=== PATIENT | female | born 1945 | race Caucasian/White ===

== ENCOUNTER 2021-03-25 11:48 | Outpatient (CLI) | payer MEDICARE, SELFPAY ==
--- NOTE | 2021-03-25 10:45 | DI.RAD_ITS ---
Exam(s) XR HIP LT COMPLETE AP PELVIS EXAM: XR HIP LT COMPLETE AP PELVIS CLINICAL HISTORY: LEFT HIP PAIN. TECHNIQUE: 2D digital imaging was performed. COMPARISON: No exams were available for comparison FINDINGS: No evidence of pelvic or hip fracture. There are moderate-advanced degenerative changes in the left hip joint asymmetric left hip joint narrowing. On the lateral view we also note marginal osteophyte at the left femoral head level. There is calcific density in the right-side of pelvis which is eithe r related to ovary or possibly within a uterine fibroid. IMPRESSION: Degenerative changes left hip. DATA REPOSITORY: RADIATION DOSE DELIVERED:
== END 2021-03-25 11:49 | disposition home or self-care (01) ==
LOC: DIORS 11:49
PROVIDERS: PCP Physician Assistant Medical; Referring Provider Physician Assistant Medical; Visit Provider Student in an Organized Health Care Education/Training Program
DX: M16.12 Unilateral primary osteoarthritis, left hip (principal)
CPT/HCPCS: 99203; 73502

== ENCOUNTER → 2021-08-09 13:27 | Outpatient (BNVA) | payer MEDICARE, SELFPAY | PROVIDERS: PCP Physician Assistant Medical; Referring Provider Physician Assistant Medical; Visit Provider Student in an Organized Health Care Education/Training Program | DX: M16.12 Unilateral primary osteoarthritis, left hip (principal) | CPT/HCPCS: 99215 ==

== ENCOUNTER → 2021-08-24 01:13 | Outpatient (CLI) | payer MEDICARE, SELFPAY ==
--- NOTE | 2021-08-24 09:00 | DI.MRI_ITS ---
Exam(s) MR LOWER JOINT LT WO EXAM: MR LOWER JOINT LT WO CLINICAL HISTORY: oa lt hip, lt hip pain,m16.12 TECHNIQUE: Multiplanar multisequence MRI of the knee was performed. COMPARISON: CR XR HIP LT COMPLETE AP PELVIS from 03/25/2021 FINDINGS: MARROW: There is no evidence of stress fracture nor avascular necrosis. There is mild-moderate bone edema in the left femoral head and neck. ARTICULATION: There is a unilateral left hip joint effusion-moderate size. No obvious loose intra-ar ticular body. There are significant asymmetric degenerative changes in the left hip joint with signi ficant cartilage loss-narrowing of the hip joint [id number] and there are degenerative subarticular cysts in the femoral head, the largest measuring 7 x 6 millimeters. Smaller degenerative cysts are noted in the opposing acetabulum also with some mild acetabular bone edema. There are marginal osteo phytes on both sides of the femoral head. There is no obvious hypertrophy of the ligamentum teres. LABRUM: There is attenuation and tear signal within the anterosuperior labrum. There is no evidence of paralabral cyst. BURSAE: There is no evidence of iliopsoas bursitis. Mild fluid seen lateral to the greater trochante r, this actually seen on both hips. Consistent with mild trochanteric bursitis.. Mild increased sig nal seen within the gluteus medius tendon. No abnormal intraosseous signal in the greater trochanter . OTHER: No evidence of hamstring tearing. No evidence of myositis signal. No evidence of asymmetric muscle atrophy. Sigmoid diverticulosis incidentally noted. No obvious acute diverticulitis. There are normal findin gs in the right adnexa. There is a large cystic mass which is probably ovarian, measuring 4.7 by 5 c m in addition, there is a finding in the right side of the uterus with some multifocal signal dropout which is probably a partially calcified uterine fibroid measuring 3 x 4 cm. There is no free fluid in the pelvis. IMPRESSION: 1. Advanced osteoarthritic degenerative changes in the left hip as described above and there is also some labral tearing evident, most prominent anterosuperiorly. 2. Incidentally noted are 2 masses in the central-right pelvis including with what is probably a 3 x 4 cm partially calcified uterine fibroid as well as a slightly larger 5 cm cystic structure which is probably ovarian. Follow-up ultrasound is recommended. There is no free fluid in the pelvis. DATA REPOSITORY:
== END ==
PROVIDERS: PCP Physician Assistant Medical; Visit Provider Student in an Organized Health Care Education/Training Program
DX: M25.552 Pain in left hip (principal); M16.12 Unilateral primary osteoarthritis, left hip; D25.9 Leiomyoma of uterus, unspecified; N83.8 Other noninflammatory disorders of ovary, fallopian tube and broad ligament; S76.012A Strain of muscle, fascia and tendon of left hip, initial encounter
CPT/HCPCS: 73721

== ENCOUNTER → 2021-12-14 02:22 | Outpatient (CLI) | payer MEDICARE, SELFPAY ==
--- NOTE | 2021-12-14 | DI.US_ITS ---
Exam(s) US PELVIS EXAM: US PELVIS CLINICAL HISTORY: PELVIC MASS R19.00 CALCIFIED FIBROID ON HIP XRAY TECHNIQUE: Ultrasound performed using standard protocol. COMPARISON: US US SOFT TISSUE EXTREMITY from 12/14/2021 FINDINGS: This examination was performed transabdominally only at the patient's request. Uterus measures 8.1 x 3.1 x 5.5 cm. Endometrial stripe not well visualized and cannot be evaluated. There is 4.7 cm in diameter fundal mass consistent in appearance with a fibroid in this contains intr alesional calcifications. An additional presumed 21 millimeter fibroid is also seen. There is a right ovarian massmeasuring 4.7 cm in diameter which is not ideally visualized on transabd ominal scanning but which appears to be cystic. Right ovary measures 51 x 53 by 50 millimeters. Lef t ovary measures 29 x 18 x 29 millimeters. Left ovary is not well visualized but appears to contain multiple small lesions, possibly cysts. No free fluid in the cul-de-sac. Kidneys are grossly unremarkable on limited scanning. IMPRESSION: Limited study transabdominally only. Bilateral ovarian masses are identified, I cannot confirm that these are cysts on transabdominal examination. Additional evaluation with pelvic MRI recommended. DATA REPOSITORY:
--- NOTE | 2021-12-14 | DI.US_ITS ---
Exam(s) US SOFT TISSUE EXTREMITY EXAM: US SOFT TISSUE EXTREMITY CLINICAL HISTORY: PAIN LEFT THIGH M79.652, R/O TEAR OF QUADS OR MASS TECHNIQUE: Ultrasound performed using standard protocol. COMPARISON: MR MR LOWER JOINT LT WO from 08/24/2021 FINDINGS: Soft tissue ultrasound was performed to evaluate proximal left thigh pain. There is fluid collection which is likely associated with the left hip joint, as noted on prior MRI of August 24. This measures about 34 x 8 x 15 millimeters. No other mass or fluid collection identified. If there is a high clinical suspicion of a quadriceps tear or mass, as stated on the requisition, add itional evaluation with MRI would be recommended. IMPRESSION: DATA REPOSITORY:
== END ==
PROVIDERS: PCP Physician Assistant Medical; Visit Provider Physician Assistant Medical
DX: R93.5 Abnormal findings on diagnostic imaging of other abdominal regions, including retroperitoneum (principal)
CPT/HCPCS: 76881; 76830; 76856

== ENCOUNTER 2022-11-23 10:31 | Outpatient (CLI) | payer MEDICARE, SELFPAY ==
--- NOTE | 2022-11-23 10:28 | DI.RAD_ITS ---
Exam(s) XR HIP LT COMPLETE AP PELVIS EXAM: XR HIP LT COMPLETE AP PELVIS CLINICAL HISTORY: left hip pain. TECHNIQUE: 2D digital imaging was performed. COMPARISON: Prior x-rays 03/25/2021 FINDINGS: No evidence of pelvic nor hip fracture. Advanced degenerative changes in the left hip joint are again noted with further advancement. There is now [id number] narrowing of the left hip joint space and increase E number of degenerative subar ticular cysts on both sides the joint. Small marginal osteophytes noted. The opposite-right hip remains unremarkable. IMPRESSION: Further progression of severe osteoarthritis in left hip. DATA REPOSITORY: RADIATION DOSE DELIVERED:
== END 2022-11-23 10:32 | disposition home or self-care (01) ==
LOC: DIORS 10:31
PROVIDERS: PCP Physician Assistant Medical; Referring Provider Physician Assistant Medical; Visit Provider Student in an Organized Health Care Education/Training Program
DX: M16.12 Unilateral primary osteoarthritis, left hip
CPT/HCPCS: 99213; 73502

== ENCOUNTER → 2022-12-09 09:14 | Outpatient (BNVA) | payer MEDICARE, SELFPAY | PROVIDERS: PCP Physician Assistant Medical; Referring Provider Physician Assistant Medical; Visit Provider Student in an Organized Health Care Education/Training Program | DX: M16.12 Unilateral primary osteoarthritis, left hip (principal) | CPT/HCPCS: 99213 ==

== ENCOUNTER 2023-01-20 03:08 | Outpatient (CLI) | payer MEDICARE, SELFPAY ==
[2023-01-20 12:02] LABS: HCT 38.5 % (36.0-46.0); HGB 13.1 g/dL (11.2-15.7); MCH 30.8 pg (27.0-33.0); MCV 91 fL (80-95); MPV 8.6 fL (8.0-11.0); Platelet Count 290 10^3/uL (130-400); RBC 4.25 10^6/uL (3.93-5.22); RDW 12.5 % (11.7-14.6); RDW-SD 41.3 fL; WBC 6.92 10^3/uL (4.4-10.8)
[2023-01-20 12:22] LABS: Anion Gap 9.3 mmol/L (3-11); BUN 18 mg/dL (7-18); CO2 25.7 mmol/L (21.0-32.0); Calcium 9.2 mg/dL (8.5-10.1); Chloride 104 mmol/L (98-107); Estimated GFR 57.66 (mL/min/1.73m2); Glucose 94 mg/dL (74-106); Potassium 3.6 mmol/L (3.5-5.1); Sodium 139 mmol/L (136-145)
== END 2023-01-20 03:09 | disposition home or self-care (01) ==
LOC: LBO 03:08
PROVIDERS: PCP Physician Assistant Medical; Visit Provider Student in an Organized Health Care Education/Training Program
DX: M16.12 Unilateral primary osteoarthritis, left hip (principal); M25.552 Pain in left hip; Z01.818 Encounter for other preprocedural examination; Z01.812 Encounter for preprocedural laboratory examination
CPT/HCPCS: 36415; 80048; 85027

== ENCOUNTER 2023-01-31 05:59 | Day surgery (SDC) | payer MEDICARE, SELFPAY ==
[2023-01-31] VITALS (9 sets, daily range): BP systolic 79–133; BP diastolic 48–89; PULSE 53–67; RESP 10–16; TEMP 35.8–36.7; O2SAT 97–100; BMI 26.4
--- NOTE | 2023-01-31 06:45 | DI.RAD_ITS ---
Exam(s) XR HIP LT IN OR EXAM: XR HIP LT IN OR CLINICAL HISTORY: surgery TECHNIQUE: 2D and realtime digital imaging was performed. CONTRAST MATERIAL: Refer to procedure report. COMPARISON: CR XR HIP LT COMPLETE AP PELVIS from 11/23/2022 FINDINGS: Fluoroscopy was provided for Dr. Stephenson during the performance of a left total hip replacement. P lease refer to the procedure report for complete details. Ka,r=1.61 mGy IMPRESSION: RADIATION DOSE DELIVERED:
[2023-01-31] MEDS: Acetaminophen 500 MG TAB 1000 MG PO (06:50)
[2023-01-31] MEDS: Celecoxib 200 MG CAP 400 MG PO (06:50)
--- NOTE | 2023-01-31 07:07 | W.ANESPRE ---
General Info Date of Service Date Performed: 01/31/23 Height: 5 ft 1 in Weight: 63.4 kg Body Mass Index (BMI): 26.4 Surgical Procedure: Operation Date: 01/31/23 07:50 Proposed Procedure Side Surgeon p Hip Total Hip Anterior, Corail Short Neck Left Roshan Stephenson MD Meds Allergies and Home Medications Allergies Allergy/AdvReac Type Severity Reaction Status Date / Time No Known Allergies Allergy Verified 01/31/23 06:18 Home Medication Medication Instructions Recorded ascorbate calcium (vitamin C) 500 500 mg PO DAILY 03/16/21 mg tablet cholecalciferol (vitamin D3) 50 50 mcg PO DAILY 03/16/21 mcg (2,000 unit) capsule cyanocobalamin (vitamin B-12) 100 100 mcg PO DAILY 03/16/21 mcg tablet omega-3 fatty acids 1,000 mg 1,000 mg PO DAILY 03/16/21 capsule (Fish Oil Concentrate) vit C,E,zinc,copper-[id number] 250 1 cap PO DAILY 03/25/21 mg-lutein 5 mg-zeaxanthin 1 mg capsule (Ocuvite Adult 50 Plus) vitamin E (dl, acetate) 180 mg 180 mg PO DAILY 03/25/21 (400 unit) capsule methimazole 5 mg tablet 2.5 mg PO DAILY PRN 11/23/22 biotin-folic acid-vitamin B 1 tab PO DAILY 01/20/23 complex with C-zinc 3 mg-0.8 mg tablet magnesium oxide 500 mg tablet 500 mg PO DAILY 01/20/23 acetaminophen 500 mg tablet 1,000 mg PO Q8H PRN pain #90 tabs 01/31/23 aspirin 81 mg tablet,delayed 81 mg PO BID 30 days #60 tabs 01/31/23 release celecoxib 200 mg capsule (Celebrex) 200 mg PO BID PRN #60 caps 01/31/23 dexamethasone 4 mg tablet 4 mg PO DAILY #2 tabs 01/31/23 docusate sodium 100 mg capsule 100 mg PO BID #30 caps 01/31/23 (Colace) pantoprazole 40 mg tablet,delayed 40 mg PO DAILY #14 tabs 01/31/23 release tramadol 50 mg tablet 50 mg PO Q4H PRN severe 01/31/23 postoperative pain #18 tabs Current Visit Medications: Current Medications Generic Name Dose Route Start Last Admin Trade Name Freq PRN Reason Stop Dose Admin Acetaminophen 1,000 mg 01/31/23 06:00 01/31/23 06:50 Acetaminophen 500 Mg Tab PO 03/02/23 05:59 1,000 mg PREOP BRANDON Administration Celecoxib 400 mg 01/31/23 06:00 01/31/23 06:50 Celecoxib 200 Mg Cap PO 03/02/23 05:59 400 mg PREOP BRANDON Administration Tranexamic Acid 1,000 mg/ 60 mls @ 360 mls/hr 01/31/23 06:00 Sodium Chloride IV 01/31/23 18:00 PREOP BRANDON Ringer's Solution 1,000 mls @ 80 mls/hr 01/31/23 06:00 IV 03/01/23 23:59 INFUSION BRANDON Cefazolin Sodium/Dextrose 2 gm in 50 mls @ 100 mls/hr 01/31/23 06:00 Ancef Duplex IVPB 03/01/23 23:59 PREOP BRANDON IV Miscellaneous Supplies 1 each 01/31/23 06:00 Iv Access IV 03/01/23 23:59 DIRECTED BRANDON Sodium Chloride 0 ml 01/31/23 06:00 Normal Saline Flush 10 Ml Syr IV 03/01/23 23:59 PRN PRN Sodium Chloride 0 ml 01/31/23 06:00 Normal Saline 10 Ml Vial IJ 03/01/23 23:59 DIRECTED PRN Sterile Water 0 ml 01/31/23 06:00 Water,Injection,Sterile 10 Ml Vial IJ 03/01/23 23:59 DIRECTED PRN PFSH Active Problems Active Problems: Problem Status Onset Code Osteoarthritis of left hip M16.12 Anxiety F41.9 Psoriasis L40.9 Hypercholesterolemia E78.00 Graves disease E05.00 Essential tremor G25.0 Medical History Medical History Hyperthyroidism Surgical History Surgical History (Updated 01/31/23 @ 06:22 by Thao Freeman) Hx of colonoscopy Status post breast reduction (~2004) Tobacco Smoking/Tobacco Use Status: Never Alcohol Alcohol Intake: current Alcohol intake frequency: holidays/special occasions only Alcohol type: wine Substance Use Substance use: Never Substance use type: does not use Details: alcohol: couple months Vital Signs and Lab Results Vital Signs Most Recent Vital Signs in EMR: Most Recent Vital Signs Temp Pulse Resp BP Pulse Ox 36.7 C 67 14 133/70 97 01/31/23 06:24 01/31/23 06:24 01/31/23 06:24 01/31/23 06:24 01/31/23 06:24 Lab Results Blood Type / Crossmatch: No Data to Display Complete Blood Count: White Blood Count 6.92 10^3/uL (4.4-10.8) 01/20/23 11:59 Red Blood Count 4.25 10^6/uL (3.93-5.22) 01/20/23 11:59 Hemoglobin 13.1 g/dL (11.2-15.7) 01/20/23 11:59 Hematocrit 38.5 % (36.0-46.0) 01/20/23 11:59 Platelet Count 290 10^3/uL (130-400) 01/20/23 11:59 Complete Metabolic Panel: Sodium 139 mmol/L (136-145) 01/20/23 11:59 Potassium 3.6 mmol/L (3.5-5.1) 01/20/23 11:59 Chloride 104 mmol/L (98-107) 01/20/23 11:59 Carbon Dioxide 25.7 mmol/L (21.0-32.0) 01/20/23 11:59 BUN 18 mg/dL (7-18) 01/20/23 11:59 Creatinine 1.0 mg/dL (0.55-1.02) 01/20/23 11:59 Est GFR (CKD-EPI 2020) 57.66 (mL/min/1.73m2) 01/20/23 11:59 Calcium 9.2 mg/dL (8.5-10.1) 01/20/23 11:59 Glucose 94 mg/dL (74-106) 01/20/23 11:59 Liver Function Panel: No Data to Display Coagulation Panel: No Data to Display Cardiac Panel: No Data to Display Arterial Blood Gas: No Data to Display Venous Blood Gas: No Data to Display Pancreas Panel: No Data to Display Thyroid Panel: No Data to Display Infectious Disease: No Data to Display Blood Cultures: No Data to Display Toxicology Panel: No Data to Display Anesthesia Assessment and Plan Anesthesia History Personal History: No History of Anesthesia Complications Family History: No Family History of Anesthesia Complications Exercise Tolerance Exercise Tolerance: Metabolic Equivalents>4 Pertinent Negatives Pertinent Negatives: No Major Cardiovascular Symptoms or Complaints, No Major Pulmonary Symptoms or Complaints and No History of CVA/TIA Cardiac & Pulmonary Exam Cardiac Exam: Normal S1/S2 Heart Sounds Pulmonary Exam: Clear Bilateral Breath Sounds Implantable Cardiac Device Does patient have a Pacemaker or an ICD?: No Airway Exam Known Difficult Airway: No Mallampati Class: 2 Mouth Opening: Normal (> 3cm) Thyromental Distance: Greater than 3 cm Neck Range of Motion: Full ROM Neck Circumference: Normal Teeth Condition: Normal Dentition ASA Classification ASA Score: ASA 2 Emergency Case?: No NPO Status NPO Status: NPO Clears >2 hours, Solids >8 hours Anesthesia Plan Resuscitation Status: Full Code Anesthesia Technique: Spinal Anesthesia Airway Planned: Natural Airway Monitors Used: Standard Monitors
[2023-01-31] MEDS: Lactated Ringers 1,000 ML 80 ML IV (07:10)
--- NOTE | 2023-01-31 07:13 | DSE_ITS ---
Date of service: 01/31/23 Time of Service: 07:18 DS: Diagnosis Discharge Diagnosis (1) Osteoarthritis of left hip: Status: Chronic Discharge Plan Disposition Patient Disposition: Home Condition: Good Discharge Details Reason For Visit: Left hip DJD Attending Provider: Roshan Stephenson Primary Care Provider: Hermelinda Cox Home Meds and New Rx's Prescriptions: New acetaminophen 500 mg tablet 1,000 mg PO Q8H PRN Qty: 90 0RF Rx Instructions: Take two tablets up to every 8 hours as needed for pain aspirin 81 mg tablet,delayed release (DR/EC) 81 mg PO BID 30 Days Qty: 60 0RF celecoxib [Celebrex] 200 mg capsule 200 mg PO BID PRNQty: 60 0RF Rx Instructions: Take one tablet twice daily for pain and inflammation docusate sodium [Colace] 100 mg capsule 100 mg PO BID Qty: 30 0RF tramadol 50 mg tablet 50 mg PO Q4H PRN (Reason: severe postoperative pain) Qty: 18 0RF Rx Instructions: Take one tablet up to every 4 hours as needed for severe pain pantoprazole 40 mg tablet,delayed release (DR/EC) 40 mg PO DAILY Qty: 14 0RF dexamethasone 4 mg tablet 4 mg PO DAILY Qty: 2 0RF Rx Instructions: Take one tablet once daily for two days Continued ascorbate calcium (vitamin C) 500 mg tablet 500 mg PO DAILY cholecalciferol (vitamin D3) 50 mcg (2,000 unit) capsule 50 mcg PO DAILY omega-3 fatty acids [Fish Oil Concentrate] 1,000 mg capsule 1,000 mg PO DAILY cyanocobalamin (vitamin B-12) 100 mcg tablet 100 mcg PO DAILY vitamin E (dl, acetate) 180 mg (400 unit) capsule 180 mg PO DAILY Ocuvite Adult 50 Plus 250-5-1 mg capsule 1 cap PO DAILY methimazole 5 mg tablet 2.5 mg PO DAILY PRN biotin-folic acid-B compC-zinc 3-0.8 mg tablet 1 tab PO DAILY magnesium oxide 500 mg tablet 500 mg PO DAILY Discontinued ibuprofen [Advil] 200 mg Tablet 400 mg PO Q6H PRN Discharge Instructions Additional Instructions: Total Hip Discharge Instructions Activity: The most important activity is to walk. You should try to take short walks a few times a day. You have no restrictions on movement or positioning, but do not try to force what you do. You will find some stiffness and weakness with hip flexion (lifting your knee). Do not try to strengthen this too early, continue to practice walking and stairs and this will come. - Outpatient physical therapy can be helpful to help return you to a normal gait and improve your flexibility and strength. This can start around 2 weeks. For some patients, it?s not necessary. Usually this is determined at the time of discharge or at the first post-operative visit. - You should wear the GEOFF hose on both legs for 2 weeks. Dressing: Keep the surgical dressing in place for at least one week. After the first week it may be removed and replace with light gauze and tape or nothing. It may get wet after 3 days but avoid soaking the dressing. If it gets wet, just lightly pat dry. It is important to always keep some gauze between skin folds, especially when you are sitting. Spend some time with the wound exposed when you are lying flat as the incision does wrinkle onto itself. Medications: - You should take Tylenol and an anti-inflammatory Celebrex as your primary pain control medications. If the Celebrex is too expensive or not covered, please call the office for another alternative (Advil/Ibuprofen or Naproxen/Aleve). - You have been prescribed a stronger pain medication Tramadol for breakthrough pain, take as needed as prescribed. - You have also been prescribed a stomach acid reduction agent Pantoprozole to help reduce stomach acid and reflux. - You have also been prescribed Decadron to help with post-operative nausea and pain. You will take this for two days starting tomorrow. - You will be taking Aspirin 81mg twice a day for DVT prevention unless instructed otherwise. - If you have constipation you should take Colace (which has been prescribed) or Miralax (which is available [id number]). It takes most people 3-4 days to have a bowel movement. Follow-up: 2 weeks If you have any acute concerns or questions, please do not hesitate to contact the office at [phone]. You may contact Dr. Stephenson with any questions after hours through the hospital at [phone] or on his cell phone at [phone]. Referrals: Roshan Stephenson MD [ [facility] STAFF PHYSICIAN] - Equipment/Supplies: Walker Activity:: Elevate Remove Dressings/Wound Care:: Do Not Remove Shower/Bathe:: Cover Diet:: As Tolerated DS: Summary Time Spent with Patient providing and/or coordinating discharge services: Less than 30 minutes Status at Discharge Functional status at discharge: uses cane/walker Overall status at discharge: patient is progressing back to baseline Mental Status: mental status grossly normal Speech and Movement: speech and movement normal Mood: congruent mood Affect: normal affect Exam Psych Mental Status: mental status grossly normal Speech and Movement: speech and movement normal Mood: congruent mood Affect: normal affect DS: Data Vitals/I&O Vitals and I&O: Vital Signs Temperature 98.1 F 01/31/23 06:24 Pulse 67 01/31/23 06:24 Pulse Rhythm Regular 01/31/23 06:24 Respiratory Rate 14 01/31/23 06:24 Respiratory Depth Normal 01/31/23 06:24 Blood Pressure 133/70 01/31/23 06:24 Pulse Oximetry 97 01/31/23 06:24 Oxygen Delivery Method Room Air 01/31/23 06:24 Oxygen Flow Rate 0 01/31/23 06:24 Pain Level 5 01/31/23 06:24 Intake & Output 01/30/23 01/30/23 01/31/23 11:59 23:59 11:59 Weight 139 lb 12.369 oz PFSH All Active Problems Osteoarthritis of left hip (Chronic) Anxiety (Chronic) Psoriasis (Chronic) Hypercholesterolemia (Acute) Graves disease (Acute) Essential tremor (Acute) Due to Graves Medical History Hyperthyroidism Surgical History (Updated 01/31/23 @ 06:22 by Thao Freeman) Hx of colonoscopy Status post breast reduction (~2004) Social History Smoking/Tobacco Use Status: Never Smoking risk assessment performed?: Yes Alcohol Intake: current Alcohol Intake frequency: holidays/special occasions only Alcohol type: wine Drug use: Never Substance use type: does not use Details: alcohol: couple months Housing: house Current gender identity: female Do you feel safe at home: Yes Additional Social history: lives alone Time Spent with Patient Time Spent with Patient: <45 minutes Time was spent: referring, communicating with other health child daycare worker, counseling the patient and care coordination
[2023-01-31] MEDS: ceFAZolin 2 GM/50 ML BAG IVPB (07:30)
--- NOTE | 2023-01-31 08:51 | W.PM.OP ---
Date of service: 01/31/23 Time of Service: 07:45 Operative Note Operative Note DATE OF PROCEDURE: 01/31/23 PRE-OP DIAGNOSIS: Left Hip Osteoarthritis POST-OP DIAGNOSIS: same PROCEDURE: Left Anterior Total Hip Arthroplasty with Intraoperative Navigation SURGEON: Roshan Stephenson CUSTOMER SUCCESS ADVOCATE: Neelam Martin ANESTHESIA TYPE: Spinal Refer to Anesthesia Record ESTIMATED BLOOD LOSS: 100 PATHOLOGY: none sent TOURNIQUET TIME: 0 COMPLICATIONS: None Patient was transported to: PACU Patient's condition: stable Implants: 1. Depuy [place] Acetabular Component, 48mm 2. Depuy Acetabular Liner, [id number] 3. Depuy Corail Low Neck Collared Femoral Stem, Size 11 4. Depuy Altrx Ceramic Femoral Head, Size 32+5mm Indications: I have seen Zuri in clinic for symptoms of hip arthritis, confirmed with radiographic findings. She has exhausted nonoperative methods and was having significant limitations in daily function and desired better function and less pain. I discussed the technical details of a hip replacement. I explained the risks of the procedure to include, but not limited to, bleeding, infection, pain, stiffness, fracture, damage to nerves and vessels, damage to muscles and tendons, loosening, instability, leg length inequality, need for repeat procedure, blood clot and cardiopulmonary demise. Despite these risks, Zuri elected to proceed. Findings: There was significant signs of arthritis throughout the hip. Procedure Description: Zuri was greeted in the preoperative holding area where the correct side was identified and marked. The consent was reviewed with the patient and signed. The history and physical was updated. All questions were answered. She was taken back to the operating room. A spinal anesthestic was then administered. The feet were wrapped with cast padding and Coban and then placed into the boot liners and then into the boots. Care was taken to protect the skin and make sure the heels were fully down and the boots were stable. The patient was then positioned onto the HANA table. Both legs were held in a neutral position. SCDs were applied. The patient was then slid down onto a peroneal post. Prophylactic antibiotics in the form of Cefazolin were administered. 1g of Tranxemic Acid was given intravenously within 30 minutes of incision. The left leg was then prepped with Chloraprep and draped in a standard fashion. A second prep with Chloraprep was performed prior to placement of a shower-curtain type drape with Iodine impregnated skin protection. A timeout to confirm correct identity, side and site, procedure, allergies, anesthesia, and medical concerns was performed. An obliquely oriented incision was made starting lateral to the ASIS and running distal over the Tensor Fascia Isa (TFL) muscle belly toward the fibular head, approximately 10cm. The skin and soft tissue was dissected sharply, through Sara?s fascia, and to the fascia of the TFL. With the fascia and superior border of the IT band identified, the fascia was incised with a new knife just above any perforators from the IT band. The TFL muscle belly was bluntly dissected away from the fascia and moved laterally. The fat between TFL and rectus was identified to ensure the dissection was not within the TFL. Blunt dissection created space between abductors and the capsule and retractor was placed over the lateral femoral neck. The fibers of the rectus femoris tendon were identified and these were freed from the anterior capsule. A second cobra retractor was placed around the medial femoral neck. The TFL was further retracted laterally to show the deep fascia. Careful dissection through this layer identified three main crossing vessels of the lateral femoral circumflex. These were cauterized in multiple locations and then cut without any noticeable bleeding. The TFL was further released bluntly from the deep fascia to expose anterior hip capsule and fat The Dick orthopaedic retractor was then placed beneath the TFL and against sartorius and medial soft tissues to protect and retract the soft tissues. A T-capsulotomy was then performed starting at the superior lateral acetabulum and moving distally to the intertrochanteric ridge. These capsular flaps were tagged with a No. 1 Ethibond and elevated from within. The capsular flaps were released to the shoulder of the lateral neck and to the lesser trochanter to give excellent visualization of the proximal femur. A neck osteotomy was performed using an oscillating saw based on preoperative templates. This cut started in the shoulder and of the lateral neck and exited medially. The saw was at all times directed medially to avoid injury to the greater trochanter. Gross traction was applied to the leg and the osteotomy opened. The femoral head was removed with a corkscrew, making sure to protect the TFL on its exit. Traction was released after head removal. This was measured on the back table to determine the starting reamer size. Portions of the rectus obscuring visualization were minimally elevated off the superior acetabulum. An anterior retractor was placed over the anterior wall between capsule and labrum and attached to the Gripper retraction system. The femur was rotated to 90 degrees and medial capsule was fully released until the lesser trochanter was palpable and visible; the femur was returned to 30 degrees. A posterior retractor was placed similarly between capsule and labrum. This provided excellent visualization. The contents of the cotyloid fossa were removed with electrocautery and the labrum was removed with a knife. There was a notable floor osteophyte. There was significant chondromalacia of the superior acetabulum. Acetabular reaming began with a 44mm reamer. This first reaming was directed anterior to posterior and medial to get down to the true floor. This was inspected and reamed until the true floor was reached. The anterior retractor was then released and entry and exit was provided by traction on the capsular flaps. I then reamed sequentially up to a 48mm reamer where good fit was obtained. The larger reamers were oriented based on anatomical reference of the anterior and lateral cazares to ensure proper abduction and anteversion. Positioning and size was confirmed with the fluoroscopy. A 48mm Depuy [place] acetabular component was selected. The acetabulum was reamed around the periphery with the selected acetabular size to prevent a rim fit. The deep tissues were irrigated. The acetabular component was then impacted in a position of about 40-45 degrees of abduction and 15-20 degrees of anteversion, using the patient?s anatomy as the ultimate landmark. Fluoroscopy was used to confirm this. There was excellent installation and service technician of the acetabular component and the inserting handle was removed. The acetabular liner, Depuy 65y67hm polyethylene liner, was inserted and lined up with the tines of the acetabular component. There was no soft tissue interposition. The liner was then impacted into position and confirmed to be well-seated. A portion of the hiro-articular cocktail was then injected around the acetabulum into the capsule and periosteum. This cocktail consisted of 123mg of Ropivacaine, 0.25mg of Epinephrine, 0.04mg of Clonidine, and 15mg of Ketorolac, diluted to 50cc. The leg was rotated to 120 degrees. Any remaining medial capsule was released until the lesser trochanter was easily palpable. A retractor was placed medially. The lateral capsule was further released into the shoulder to allow access to the greater trochanter. A Patel retractor was placed over the greater trochanter which allowed the trochanter to flip in front of the capsule for excellent exposure. The leg was brought down into maximal extension and 20 degrees of adduction while ensuring there was no impingement on the acetabulum. Any remnant capsule within the trochanter was released. Piriformis and obturator externis were identified and protected. There was excellent access to the proximal femur. The lateral neck remnant was removed with a rongeur. A blunt canal probe was used to identify the canal and trajectory for later broaching. A box osteotome initiated the broach course. A small curved rasp and a curved curette were used to work laterally. Broaching then began with a size 8 Corail broach. This was inserted manually around the trochanter and into the canal before mallet blows. The broach was seated to a few millimeters below the cut level based on the neck cut and the preoperative template. Sequential broaching was continued with the ViaBill pneumatic broaching device until a tight fit was obtained with good rotational control of the femur. A trial short neck was inserted along with a +5 trial head. The leg was brought out of extension and adduction and then reduced with traction and internal rotation. The leg was stable anteriorly in a position of 30 degrees of extension and 90 degrees of external rotation. Fluoroscopy was used to ensure there was no fracture and the stem was seated well. Leg lengths were checked with an AP pelvis and pelvic reference points. Electric Cloud navigation system was used to confirm appropriate positioning and leg length and offset. Once content with the desired offset and leg lengths, the leg was brought back into extension, external rotation and adduction. The periosteum and surrounding tissue was injected with remaining portion of the hiro-articular cocktail. The proximal femur was irrigated as well as the deep tissues. The Depuy Corail short neck collared stem, size 11, was then manually inserted into the proximal femur making sure to control rotation. It was then malleted into position with light blows, giving breaks to allow bone expansion and decrease risk of fracture. The selected Depuy Altrx Ceramic Head, size 32+5mm, was then placed onto the clean and dry trunnion and secured with impaction onto the tapered fit. The leg was brought back out of extension and adduction and reduced with traction and internal rotation. Stability was confirmed with no shuck at 90 degrees of external rotation and 30 degrees of extension. No impingement through range of motion arc. Final x-ray images were obtained with fluoroscopy to confirm adequate positioning and no intraoperative fracture. The deep tissues were thoroughly irrigated with Surgiphor, betadine solution. This was allowed to sit in the wound for 3 minutes before being thoroughly irrigated out with normal saline. The capsule was then reapproximated with the previously placed Ethibond sutures. The TFL fascia was finally closed with a No. 2 Stratafix, barbed suture. Deep tissues were then reapproximated with 0 Vicryl and a running 2-0 Vicryl. The skin was closed with a running 4-0 Monocryl in a subcuticular fashion. This was reinforced with skin glue. A Mepilex silver dressing was applied. At the end of the case, all counts were correct. Zuri was transferred to the hospital bed without difficulty and suffering no apparent complication. Zuri has a good prognosis. Physical therapy will start today and without restrictions, weight-bearing as tolerated. Aspirin 81mg BID will be used for DVT prophylaxis.
[2023-01-31] MEDS: traMADol 50 MG TAB PO (10:00)
--- NOTE | 2023-01-31 10:29 | IN_ITS ---
PT Notes Visit Reasons: Left hip DJD Physical Therapy Day Surgery Initial Evaluation Date: 01/31/2023 Referring Doctor: PADDY Chamorro PT Orders: PT CONSULT: S/P Ortho surgery Precautions: WBAT on left LE with AD Patient Profile/Admitting Diagnosis: Zuri is a 77-year-old female with degenerative joint disease of the left hip and is status post left anterior total hip arthroplasty on postoperative day 0. PMHX: Surgical History?(Updated 01/20/23 @ 10:21 by Neelam Martin) Status post breast reduction (~2004) Social History/Home Situation: Lives alone in a private camp with a ramp to enter where she will be staying for about 4 days and then a well move over to her home in a different location with 2 steps to enter without rails. Has friends and family who can come over to help her as needed. Equipment Owned/DME: [facility], [facility] Subjective: Complains of pain on the left hip and the side of the left hip at rest and and at the side in front of the distal left thigh when she tries to stand up straighter. Denies headache, chest pain, and lightheadedness throughout ses keisha. Objective: General Observation: Supine in bed. Friend Jennifer present throughout session. Mepilex Ag over surgical incision. TEDs to be legs. Mental Status: Alert and oriented x4 Pain: 5?6/10 pain in the distal left anterolateral thigh ROM: Right Lower Extremity: Hip flexion WFL. Hip abduction WFL. Knee flexion WFL. Ankle dorsiflexion WFL. Ankle plantarflexion WFL. Left Lower Extremity: Hip flexion WFL. Hip abduction WFL. Knee flexion WFL. Ankle dorsiflexion WFL. Ankle plantarflexion WFL. Strength: Right Lower Extremity: Hip flexors 5/5. Hip abductors 5/5. Knee flexors 5/5. Knee extensors 5/5. Ankle dorsiflexors 5/5. Ankle plantarflexors 5/5. Left Lower Extremity:Hip flexors 4/5. Hip abductors 4/5. Knee flexors 5/5. Knee extensors 4/5. Ankle dorsiflexors 5/5. Ankle plantarflexors 5/5. Sensation: Intact as to pain and light pressure in bilateral lower extremities Bed Mobility/Transfers: Supine to sit standby assist Sit to stand contact-guard assist, moderate verbal cueing to use B hands for support Stand to sit standby assist moderate verbal cueing to use B hands for support Bed to chair standby assist moderate verbal cueing to use B hands for support Gait: Facilitated safe and correct performance of level surface ambulation using front-wheeled walker with moderate verbal cueing needed for limb advancement, movement sequence, and AD management. Patient was able to cover about 20 feet +50 feet +50 feet of level surface ambulation using front wheeled walker with contact-guard assist provided. Reported 5?6/10 pain on the left anterior lateral distal thigh when she tries to stand up. Decreases to 4?5/10 at rest. Stairs: Per evaluated needed guidance for safe performance of stair navigation using single-point cane and rail on one side with patient requiring moderate verbal cueing for correct LE sequence, posture, and overall safety. Balance: Static Sitting: Normal Dynamic Sitting: Normal Static Standing: Fair Dynamic Standing: Fair Special Tests: Mobility Limitations Standardized Measure [facility]-PAC 6 clicks Basic Mobility Inpatient Short Form: Raw Score: 21 CMS Score: 29% deficit Informed Consent/Education: Patient instructed in purpose of PT consult. Packet containing JEANIE exercise protocol has been given to patient. Trained patient with correct performance of exercises below to maximize motor control, joint flexibility, soft tissue extensibility of the L hip musculature to facilitate return to independent functional mobility performance. Access Code: [email or web address] URL: [email or web address] Date: 01/31/2023 Prepared by: Sruthi Bautista Exercises - Gluteal Sets - 1 x daily - 7 x weekly - 1 sets - 10 reps - 5 hold - Supine Heel Slide - 1 x daily - 7 x weekly - 1 sets - 10 reps - 5 hold - Supine Ankle Pumps - 1 x daily - 7 x weekly - 1 sets - 10 reps - 5 hold - Seated March - 1 x daily - 7 x weekly - 1 sets - 10 reps - 5 hold - Seated Long Arc Quad - 1 x daily - 7 x weekly - 1 sets - 10 reps - 5 hold Assessment: Zuri requires the use of a front-wheel walker for all mobility ADL performance to maximize independence and reduce fall risk. She will have the support of her friends and family as she recovers at home. Patient presents with clinical signs and symptoms consistent with current/admitting diagnoses that have resulted to mobility limitations, gait instability, generalized weakness, and impairment of motor control as demonstrated by the following impairment level findings: 1. Decreased strength to left hip major muscle groups 2. Impaired standing balance Impairments are contributing to the following functional limitations: 1. Inability to safely ambulate without assistive device 2. Increase completion time for mobility ADL performance 3. Increased fall risk Patient is assessed as a 21244 moderate complexity based on the following: History: 77-year-old female with impairment level findings, functional limitations, and past medical history as indicated above Examination: Demonstrable impairment in strength, balance, and mobility level with underlying impairments and functional limitations as documented above Presentation: Evolving Decision Makin moderate complexity Goals: N/A. PT evaluation and 1-2 treatment sessions only for functional mobility training using recommended AD and for HEP instruction. Plan of Care/Treatment Plan: N/A. PT evaluation and 1-2 treatment session only for functional mobility training using recommended AD and for HEP instruction. DISCHARGE RECOMMENDATIONS: Home when medically cleared by orthopedic surgeon. Recommend outpatient PT services in order to optimize functional mobility outcomes and facilitate return to independent community ambulation without an assistive device. TREATMENT CODE/TIME: 89093 x 20 minutes for 1 unit, 96343 x 13 minutes for 1 unit beginning at 10:35 AM. Thank you for the opportunity to participate in the care of this patient. Sruthi Bautista PT, DPT, CLT [facility] [place], [place]
--- NOTE | 2023-01-31 11:34 | W.ANESPOSTOP ---
Postoperative Evaluation Date, Time and Location Date Performed: 01/31/23 Time Performed: 11:34 Patient Location: Day Surgery Unit Vital Signs Most Recent Imported Vital Signs: Most Recent Vital Signs Temp Pulse Resp BP Pulse Ox 35.8 C L 64 14 129/78 99 01/31/23 10:08 01/31/23 10:08 01/31/23 10:08 01/31/23 10:08 01/31/23 10:08 Pain Score Most Recent Pain Score: Most Recent Pain Score Pain Level 6 01/31/23 10:08 Assessment Mental Status: Awake (Alert & Oriented to Patient Baseline) Airway and Respiratory Function: Patent airway with normal (patient baseline) respiratory exam Cardiovascular Function: Hemodynamically Stable Hydration Status: Adequately Hydrated Nausea & Vomiting: No Nausea or Vomiting Pain: Pt. Denies Any Pain (only when standing) Peripheral Nerve Block: Patient did not receive a nerve block
== END 2023-01-31 12:09 | disposition home or self-care (01) ==
PROVIDERS: PCP Physician Assistant Medical; Visit Provider Student in an Organized Health Care Education/Training Program
PROC: (CPT 27130; principal; 2023-01-31 07:30)
DX: M16.12 Unilateral primary osteoarthritis, left hip (principal); G25.0 Essential tremor; F41.9 Anxiety disorder, unspecified; E78.00 Pure hypercholesterolemia, unspecified; E05.00 Thyrotoxicosis with diffuse goiter without thyrotoxic crisis or storm
CPT/HCPCS: 20985; 27130; C1776; 97162; 97530; 73501; J0690; J1100; J2001; J2250; J2405

== ENCOUNTER 2023-02-13 11:13 | Outpatient (CLI) | payer MEDICARE, SELFPAY ==
--- NOTE | 2023-02-13 10:45 | DI.RAD_ITS ---
Exam(s) XR HIP LT COMPLETE AP PELVIS EXAM: XR HIP LT COMPLETE AP PELVIS CLINICAL HISTORY: 1ST POST OP S/P L JEANIE. TECHNIQUE: 2D digital imaging was performed. COMPARISON: MR MR LOWER JOINT LT WO from 08/24/2021 CR XR HIP LT COMPLETE AP PELVIS from 11/23/2022 FINDINGS: 3 views There has been interval left hip arthroplasty. Components of the arthroplasty are in satisfactory po sition alignment. No fracture or loosening evident. Incidentally noted is an intramedullary lucency in the subtrochanteric region of the opposite-right h ip.. This does not exhibit a sclerotic border may be a possible concerning lesion. IMPRESSION: Satisfactory appearance of left hip prosthesis. Possible significant bone lesion in the proximal diaphysis of the opposite-right femur. This measure s approximately 1.9 by 1.4 cm. DATA REPOSITORY: RADIATION DOSE DELIVERED:
== END 2023-02-13 11:14 | disposition home or self-care (01) ==
LOC: DIORS 11:13
PROVIDERS: PCP Physician Assistant Medical; Referring Provider Physician Assistant Medical; Visit Provider Student in an Organized Health Care Education/Training Program
DX: Z96.642 Presence of left artificial hip joint (principal); Z47.1 Aftercare following joint replacement surgery
CPT/HCPCS: 73502

== ENCOUNTER → 2023-03-24 10:46 | Outpatient (BNVA) | payer MEDICARE, SELFPAY | PROVIDERS: PCP Physician Assistant Medical; Visit Provider Student in an Organized Health Care Education/Training Program | DX: Z47.1 Aftercare following joint replacement surgery (principal); Z96.642 Presence of left artificial hip joint ==

== ENCOUNTER 2024-02-05 11:51 | Outpatient (CLI) | payer MEDICARE, SELFPAY ==
--- NOTE | 2024-02-05 11:55 | DI.RAD_ITS ---
Exam(s) XR HIP LT AP LAT ONLY EXAM: XR HIP LT AP LAT ONLY CLINICAL HISTORY: s/p left JEANIE. TECHNIQUE: 2D digital imaging was performed. Two images were obtained. AP and lateral views were ob tained. COMPARISON: CR XR HIP LT COMPLETE AP PELVIS from 02/13/2023 FINDINGS: BONES: There are stable post operative changes of a left total hip replacement present. No fracture or dislocation. JOINTS: The orthopedic hardware is in good position. No evidence of hardware loosening. SOFT TISSUE: Normal. IMPRESSION: Stable left total hip replacement. DATA REPOSITORY: RADIATION DOSE DELIVERED:
== END 2024-02-05 11:52 | disposition home or self-care (01) ==
LOC: DIORS 11:54
PROVIDERS: PCP Physician Assistant Medical; Visit Provider Student in an Organized Health Care Education/Training Program
DX: Z96.642 Presence of left artificial hip joint (principal)
CPT/HCPCS: 73502

== ENCOUNTER 2024-07-18 01:47 | Outpatient (CLI) | payer MEDICARE, SELFPAY ==
--- NOTE | 2024-07-18 | DI.RAD_ITS ---
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 COMPARISON: No exams were available for comparison FINDINGS: MEDIASTINUM: Normal. HEART: Normal. Aorta mildly tortuous. PULMONARY VASCULATURE: Normal. LUNGS: Clear. PLEURAL SPACE: No pleural effusion or pneumothorax. BONE: Degenerative changes of the shoulders. Degenerative changes and mild scoliosis noted in the th oracic spine. BILATERAL RIBS: Normal. Soft tissues: Unremarkable. IMPRESSION: 1. No acute pulmonary findings. 2. Unremarkable ribs. 3. Degenerative changes and mild scoliosis noted in the spine. DATA REPOSITORY: RADIATION DOSE DELIVERED:
== END 2024-07-18 02:07 ==
LOC: DI 01:47
PROVIDERS: PCP Physician Assistant Medical; Visit Provider Physician Assistant Medical
DX: M95.9 Acquired deformity of musculoskeletal system, unspecified (principal); M41.34 Thoracogenic scoliosis, thoracic region; M51.34 Other intervertebral disc degeneration, thoracic region
CPT/HCPCS: 71046; 71110

== ENCOUNTER 2024-07-23 01:18 | Outpatient (CLI) | payer MEDICARE, SELFPAY ==
--- NOTE | 2024-07-23 | DI.US_ITS ---
Exam(s) US THYROID EXAM: US THYROID CLINICAL HISTORY: HYPERTHYROIDISM, E05.90, THYROTOXICOSIS UNSPECIFIED THYROTOXIC. TECHNIQUE: Ultrasound thyroid performed using standard protocol. COMPARISON: No exams were available for comparison FINDINGS: ISTHMUS: 0.2 mm RIGHT LOBE: Size: 4.7 x 2.0 x 2.2 cm Echogenicity: Normal. Vascularity: Normal. Nodules: There is a 0.9 x 0.6 x 0.6 cm solid hypoechoic nodule in the inferior aspect of the right lo be of the thyroid gland. It is consistent with a TI rads level 4 nodule. Due to its size, no follow -up is recommended. There is a 0.8 x 0.6 x 0.9 cm solid isoechoic nodule in the mid and medial right lobe. Punctate echogenic foci are seen. It is consistent with a TI rads 4 level nodule. Due to it s size less than 1 cm, no follow-up is recommended. LEFT LOBE: Size: 5.0 x 1.8 x 1.8 cm Echogenicity: Normal. Vascularity: Normal. Nodules: No suspicious nodules to warrant follow-up or biopsy are seen in the left thyroid gland. OTHER FINDINGS: None. IMPRESSION: Multinodular thyroid gland. No nodules are seen that would warrant follow-up or biopsy. DATA REPOSITORY:
== END 2024-07-23 01:38 ==
LOC: DI 01:19
PROVIDERS: PCP Physician Assistant Medical; Visit Provider Physician Assistant Medical
DX: E05.90 Thyrotoxicosis, unspecified without thyrotoxic crisis or storm (principal)
CPT/HCPCS: 76536

== ENCOUNTER 2024-12-28 14:07 | Emergency (ER) | payer MEDICARE, SELFPAY ==
[2024-12-28 14:08] VITALS: BP 157/97; PULSE 113; RESP 16; TEMP 36.8; O2SAT 92
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
[2024-12-28] MEDS: Ketorolac 30 MG/ML VIAL IM (14:29)
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
[2024-12-28 15:47] VITALS: BP 165/81; PULSE 87; RESP 16; O2SAT 96
--- NOTE | 2024-12-31 10:16 | NUR.NOTE ---
Addendum entered by Aby Decker 12/31/24 11:10: Original Note: Access chart to determine the PCP for prior authorization for cyclobenzaprine HCI 10mg Nursing Note:
--- NOTE | 2025-01-02 07:32 | NUR.NOTE ---
Accessed Pt chart to obtain name of Primary Care Provider for the medication authorization. Request was faxed to Primary Care Provider for auth.
== END 2024-12-28 15:59 | disposition home or self-care (01) ==
PROVIDERS: Emergency Provider Emergency Medicine Emergency Medical Services; PCP Physician Assistant Medical
DX: S22.31XA Fracture of one rib, right side, initial encounter for closed fracture (principal); V49.9XXA Car occupant (driver) (passenger) injured in unspecified traffic accident, initial encounter
CPT/HCPCS: 99284 ×2; 96372; 71046; J1885